=== PATIENT | male | born 1960 | race Caucasian/White ===

== ENCOUNTER → 2016-12-03 | Day surgery (SDC) | payer BC ==
[~2016-12-03] MED LIST: ASPI325T PO; BACITRACIN IM FOR SOLN 50,000 UNIT VIAL ONE; BUPIVACAINE HCL PF 0.75% 30 ML VIAL ONE; DIAZ5 PO; GENTAMICIN SULFATE 80 MG/2 ML VIAL ONE; LACTATED RINGER'S 1000 ML INJ 1,000 ML ONE; LIDOCAINE 1.5%/EPINEPHrine 1:200,000 PF SOLN 30 ML AMP ONE; LISI2.5T55 PO; LORT5TAB PO; METO25 PO; MIDAZOLAM HCL 5 MG/ML VIAL (1 ML) ONE; PRAS10TA PO; PROPOFOL 200 MG/20 ML AMP IV ONE; SODIUM CHLORIDE 0.9% 20 ML VIAL ONE; ceFAZolin INJ 1,000 MG VIAL ONE
--- NOTE | 2016-12-03 08:51 | TN ---
cc: ONESIMO HAAS DATE OF SURGERY 12/03/2016 PREOPERATIVE DIAGNOSIS 1. Left shoulder complete rotator cuff tendon tear. 2. Left shoulder impingement syndrome, type 3 acromion, moderately severe OA acromioclavicular joint. POSTOPERATIVE DIAGNOSIS 1. Left shoulder complete rotator cuff tendon tear. 2. Left shoulder impingement syndrome, type 3 acromion, moderately severe OA acromioclavicular joint. PROCEDURE Left shoulder rotator cuff tendon repair, NEER decompression acromioplasty, resection of acromioclavicular joint, excision coracoacromial ligament. SURGEON Levy Haas MD FLIGHT PARAMEDIC Mary Anne Ricci PA-C SPECIMENS None ESTIMATED BLOOD LOSS Minimum COMPLICATIONS None ANESTHESIA Interscalene block, general DRAINS None CONDITION Stable PLAN OF ACTIVITY Per orders PROCEDURE My assistant producer Mary Anne Ricci PA-C was present for the entire surgical case. She was medically necessary for the entire case because of the complexity of the case and to facilitate the performance of the procedure. The [employer]NICE UPHOL[employer]ER at the back table was not a skill set to manipulate the instruments e.g. the multiple different types of soft tissue tractors and suturing and repairing of the rotator cuff tendon with suture passers and decompression of the subacromial space. The patient brought into the operating room had satisfactory interscalene block, followed by general anesthesia by Dr. Lira of the Department of Anesthesia. The left shoulder, upper extremities was all prepped and draped in the usual sterile manner. A small incision made over the anterior aspect of the shoulder. Dissection was carried through the subcutaneous tissue. Patient was found to have a type 3 acromion. The tendinous portion of the deltoid removed off of the acromion. NEER decompression acromioplasty was performed using an oscillating saw and a bur. Also resection of the distal clavicle and AC joint was also performed. The patient was found to have a massive tear involving the supraspinatus and a portion of the infraspinatus tendon. A bony trough was made in the greater tuberosity using a bur. Multiple #2 Tycron sutures then woven within the torn tendon. Using a concept suture passer, multiple holes were made in the proximal humerus and the suture passed through the bone to create a bone bridge. Also, the interval between the subscapularis and the supraspinatus was repaired using multiple #2 Tycron sutures. The wound was irrigated with copious amounts of saline. The wound itself was dry. Multiple drill holes using acromion to repair the deltoid back to the acromion. The subcutaneous tissues closed in layer with 2-0 Vicryl. Skin was approximated with running subcuticular 2-0 nylon. Instrument, sponge and sharp counts correct after the operation. The patient tolerated the procedure well and arrived in the Recovery Room in stable and satisfactory condition. MD ULISES Torres/PANDA /8:37 AM /8:43 AM
== END | disposition home or self-care (01) ==
LOC: ESDC 06:08
PROVIDERS: ATTEND Orthopaedic Surgery Orthopaedic Surgery of the Spine
DX: M75.122 Complete rotator cuff tear or rupture of left shoulder, not specified as traumatic (principal); M75.42 Impingement syndrome of left shoulder; M19.012 Primary osteoarthritis, left shoulder
CPT/HCPCS: 00450; 01630; 01991; 23120; 23420; 64417; J0690; J1580; J2250; J3010; J7120